=== PATIENT | male | born 1960 | race Two or more races ===

== ENCOUNTER 2022-09-22 10:43 | Outpatient (CLI) | payer OTHER | END 2022-09-22 23:59 | disposition home or self-care (01) | LOC: LAB 10:43 | PROVIDERS: ATTEND Specialist | DX: Z01.812 Encounter for preprocedural laboratory examination (principal); Z20.822 Contact with and (suspected) exposure to COVID-19 | CPT/HCPCS: U0003; C9803 ==

== ENCOUNTER 2022-09-29 05:45 | Day surgery (SDC) | payer OTHER ==
[~2022-09-29 05:45] MED LIST: ANESTHESIA TRAY IN PYXIS 1 EA TRAY MC ONE
[2022-09-29] MEDS ORDERED: LIDOCAINE HCL/PF 1% 30 ML SDV ONE (06:24)
[2022-09-29] MEDS ORDERED: LIDOCAINE 1% INJ 50 ML MDV IJ ONE (06:24)
[2022-09-29] MEDS ORDERED: BUPIVACAINE 0.25% 75 MG/30 ML VIAL ONE (06:24)
[2022-09-29] MEDS ORDERED: FENTANYL PF 100MCG/2ML AMPUL ONE (06:52)
[2022-09-29] MEDS ORDERED: ONDANSETRON HCL/PF 4 MG/2 ML VIAL ONE (08:15)
[2022-09-29] MEDS ORDERED: METOCLOPRAMIDE HCL 10 MG/2 ML VIAL ONE (08:44)
[2022-09-29] MEDS ORDERED: HYDROCODONE/APAP 5/325MG TABLET ONE (08:59)
== END 2022-09-29 10:00 | disposition home or self-care (01) ==
LOC: DS 05:45
PROVIDERS: ATTEND Specialist
DX: G56.02 Carpal tunnel syndrome, left upper limb (principal); G56.22 Lesion of ulnar nerve, left upper limb
CPT/HCPCS: 64718; 64721; J3010; J3490 ×2; J2765; J2405; A6253; A4565; A6402; J0690; J1100; J1885; J2704; J7030